=== PATIENT | female | born 1935 | race Caucasian/White ===

== ENCOUNTER 2019-07-05 06:16 | Inpatient (IN) ==
[2019-07-05] MEDS ORDERED: IOPAMIDOL 100 ML BOTTLE IV ONE (06:17)
[2019-07-05] MEDS ORDERED: ONDANSETRON 4 MG/2 ML VIAL IV ONE ×2 (06:33→15:50)
[2019-07-05] MEDS ORDERED: HYDROmorphone* 2 MG/ML VIAL IV PRN ×2 (06:33→10:44)
[2019-07-05] MEDS ORDERED: KETOROLAC 30 MG/ML VIAL IV ONE (06:33)
[2019-07-05] MEDS ORDERED: 0.9 % SODIUM CHLORIDE 1,000 ML IV ONE ×2 (06:33→12:46)
--- NOTE | 2019-07-05 06:37 | Emergency Department Note ---
Abdominal Pain HPI - General Chief Complaint: Abdominal Pain Stated Complaint: abdominal pain Time Seen by Provider: 07/05/19 06:33 Source: patient Mode of arrival: ambulatory Limitations: no limitations - History of Present Illness HPI Narrative: 84-year-old female with a 3-day history of constipation. Last bowel movement was normal. She is now having severe diffuse abdominal pain, since waking her up at 4 AM or approximately 2 and half hours ago. She took a laxative yesterday. She does not normally have to use laxatives. No fever or trauma not ed - Related Data Allergies Allergy/AdvReac Type Severity Reaction Status Date / Time No Known Drug Allergies Allergy Unverified 07/05/19 06:17 Review of Systems All systems ED: reviewed and negative except as stated. Abdominal Pain PMH - Past Medical History Attestation: Yes: The following information was validated with the patient. Medical history: Reports: cancer (Breast), hyperlipidemia, hypertension, other (Urinary incontinence) Surgical history ED: Reports: breast surgery - Social History Smoking status: Never smoker Physical Exam Thin elderly female in some acute distress secondary to pain. Normocephalic atraumatic. Conjunctive are clear sclerae white nonicteric. No nasal discharge or congestion. Oropharynx pink and moist. Heart is regular rate and rhythm no murmur appreciated. Lungs are clear to auscultation bilaterally without wheezes rales rhonchi or respiratory distress. Abdomen is mildly distended and tender all over. No point tenderness is noted. Even listening with my stethoscope elicited tenderness. Bowel sounds are quiet. No pedal edema. Alert oriented Limitations: no limitations Course Vital Signs Temperature 97.0 F 07/05/19 06:18 Pulse Rate 69 07/05/19 06:18 Respiratory Rate 18 07/05/19 06:18 Blood Pressure 164/78 07/05/19 06:18 Pulse Oximetry (%) 99 07/05/19 06:18 Temperature 97.0 F 07/05/19 06:18 Pulse Rate 71 07/05/19 08:32 Respiratory Rate 18 07/05/19 06:18 Blood Pressure 129/64 07/05/19 08:32 Pulse Oximetry (%) 98 07/05/19 08:32 Abdominal Pain - Lab Data Lab results reviewed: Yes I reviewed the patient's lab results. Result diagrams: 07/05/19 07:18 07/05/19 07:18 Lab Results 07/05/19 07/05/19 07/05/19 Range/Units 07:18 07:18 07:18 WBC 8.5 (4.50-11.00) K/mcL RBC 3.66 (3.59-5.38) M/mcL Hgb 11.6 (11.2-15.7) g/dL Hct 34.1 (34.1-44.9) % MCV 93.2 (80.0-100.0) fL MCH 31.7 (26.0-34.0) pg MCHC 34.0 (31.0-36.0) g/dL RDW 13.0 (11.5-14.5) % Plt Count 170 (140-440) K/mcL MPV 9.3 (7.4-10.4) fL Gran % 81.5 H (38.0-78.0) % Lymph % (Auto) 11.1 L (15.5-49.0) % [place] % (Auto) 5.1 (1.0-12.0) % Eos % (Auto) 1.6 (0.0-7.0) % Baso % (Auto) 0.7 (0.0-2.0) % Gran # 6.92 (1.80-8.00) K/mcL Lymph # (Auto) 0.94 L (1.50-4.80) K/mcL [place] # (Auto) 0.43 (0.10-0.90) K/mcL Eos # (Auto) 0.14 (0.00-0.70) K/mcL Baso # (Auto) 0.06 (0.00-0.30) K/mcL VBG Lactic Acid 2.5 H (0.5-2.0) mmol/L Sodium 137 (133-145) mmol/L Potassium 3.8 (3.3-5.1) mmol/L Chloride 104 (96-108) mmol/L Carbon Dioxide 22 (22-30) mmol/L Anion Gap 11.0 (8-16) BUN 26 H (8-23) mg/dl Creatinine 1.0 (0.6-1.1) mg/dl GFR Calculation 52 Glucose 114 H (70-105) mg/dL Calcium 9.3 (8.6-10.4) mg/dl Total Bilirubin 0.4 (0.0-1.0) mg/dL AST 18 (0-37) U/l ALT 12 (0-40) U/l Alkaline Phosphatase 34 L (39-117) U/L Total Protein 6.1 (5.9-8.4) gm/dL Albumin 3.6 (3.2-5.2) gm/dL Globulin 2.5 (2.2-3.7) gm/dL Albumin/Globulin Ratio 1.4 (1.0-2.3) Lipase 48 (7-60) U/L - Radiology Data Radiology results reviewed: Yes I reviewed the patient's radiology results. X-ray of the abdomen shows constipation but no specific findings Disposition Pt seen by WHALE FISHERMAN/PA only: No Clinical Impression: Abdominal pain Qualifiers: Abdominal location: generalized Qualified Code(s): R10.84 - Generalized abdominal pain Constipation Qualifiers: Constipation type: unspecified constipation type Qualified Code(s): K59.00 - Constipation, unspecified Summary: Ordered pain and nausea medicine. Start work-up with abdominal x-ray series and laboratory. Differential diagnosis includes constipation/obstipation versus bowel obstruction versus abscess or other intra-abdominal pathology. She does appear quite ill and may require emergent intervention-currently vital signs are stable but we will monitor closely while working up Pain medicine helped and she was feeling better. X-ray was unrevealing with nonspecific findings but large amount of stool is seen in the ascending colon. Laboratory does not show leukocytosis but she does have some mild lactic acidosis of 2.5 I did discuss findings with the patient. We will go ahead and order a CT scan of the abdomen pelvis to make sure were not missing anything because of the severity of her presentation. We will also try a fleets enema to see if that helps Patient will be checked out to Dr. hernandez at shift change. Further disposition per him Disposition: Still a Patient Condition: Serious Referrals: Emre Samuel MD [Primary Care Provider] -
--- NOTE | 2019-07-05 07:01 | XRay Report ---
INDICATION: diffuse abdominal pain, no bm x 3 days TECHNIQUE: Supine and upright abdomen. COMPARISON: None FINDINGS:Mildly prominent fecal material in the ascending colon may indicate mild constipation. Transverse colon, descending colon, sigmoid colon are unremarkable. No dilated gas-filled small bowel. No mechanical small bowel obstruction. No pneumoperitoneum. No biliary or portal venous gas. No pneumatosis. There is a focal calcification in the right side of the pelvis. Etiology is not certain. This may be within the gastrointestinal tract. History of right flank pain and renal colic is not given. IMPRESSION: 1. Mildly prominent fecal material in the ascending colon 2. Otherwise negative examination Interpreted and Authenticated by: Maxi Woods 07/05/19
[2019-07-05 07:57] LABS: Basophils # (Auto) 0.06 K/mcL (0.00-0.30); Basophils % (Auto) 0.7 % (0.0-2.0); Eosinophils # (Auto) 0.14 K/mcL (0.00-0.70); Eosinophils % (Auto) 1.6 % (0.0-7.0); Granulocytes % (Auto) 81.5 % (38.0-78.0); Hematocrit 34.1 % (34.1-44.9); Hemoglobin 11.6 g/dL (11.2-15.7); Lymphocytes # (Auto) 0.94 K/mcL (1.50-4.80); Lymphocytes % (Auto) 11.1 % (15.5-49.0); Mean Cell Volume 93.2 fL (80.0-100.0); Mean Platelet Volume 9.3 fL (7.4-10.4); Monocytes # (Auto) 0.43 K/mcL (0.10-0.90); Monocytes % (Auto) 5.1 % (1.0-12.0); Platelet Count 170 K/mcL (140-440); RBC 3.66 M/mcL (3.59-5.38); WBC 8.5 K/mcL (4.50-11.00)
[2019-07-05 08:13] LABS: ALT/SGPT 12 U/l (0-40); AST/SGOT 18 U/l (0-37); Albumin 3.6 gm/dL (3.2-5.2); Albumin/Globulin Ratio 1.4 (1.0-2.3); Alkaline Phosphatase 34 U/L (39-117); Bilirubin,Total 0.4 mg/dL (0.0-1.0); Blood Urea Nitrogen 26 mg/dl (8-23); Calcium 9.3 mg/dl (8.6-10.4); Carbon Dioxide 22 mmol/L (22-30); Chloride 104 mmol/L (96-108); Globulin 2.5 gm/dL (2.2-3.7); Glomerular Filtration Rate 52; Glucose 114 mg/dL (70-105)
[2019-07-05] MEDS ORDERED: FLEETS ADULT ENEMA PR ONE (08:37)
[2019-07-05] MEDS ORDERED: PROMETHAZINE 25 MG/ML VIAL IM PRN (10:44)
[2019-07-05] MEDS ORDERED: PIPERACILLIN SODIUM/TAZOBACTAM 3.375 GM in DEXTROSE 5% IN WATER 50 ML IV ONE (10:44)
--- NOTE | 2019-07-05 10:45 | Cat Scan Report ---
INDICATION: severe abdominal pain. no BM x 3days COMPARISON: None. TECHNIQUE: Axial images were obtained through the abdomen and pelvis. Sagittally and coronally reformatted images. 70 mL Isovue 370 injected intravenously. Oral contrast material was given FINDINGS: Stomach and duodenum are distended and contrast filled. There is a small hiatal hernia containing contrast material. Findings are consistent with left paraduodenal hernia and mechanical small bowel obstruction. There are findings of closed loop obstruction. Loops of small bowel are dilated and mesentery and vascularity are "funneled" medially toward the descending colon. Descending colon is displaced medially. There is mild free fluid in the pelvis as well as around the dilated small bowel loops. Small bowel wall enhances without nonenhancing segments. There is no pneumoperitoneum. Dr. Lee was called with these results, 07/05/2019, 1020. Lung bases:Negative. No pulmonary parenchymal nodule. No pleural fluid or pericardial fluid Liver:Negative. No focal intrahepatic mass. No focal abnormality. Liver contour is smooth. No evidence for cirrhosis Gallbladder, billary:No calcified gallstones. No gallbladder wall thickening. No dilated intra or extrahepatic bile ducts. Common bile duct measures 8 mm. This tapers normally at the ampulla Spleen:No splenomegaly. Normal enhancement of splenic and portal veins. Pancreas:No pancreatic mass. No peripancreatic abnormality Adrenal glands:Negative Kidneys, ureters, bladder: There are benign left renal cysts. There is a 14 mm exophytic right mid to lower pole mass. There are mural calcifications. There is mild mural thickening and enhancement. There may be some internal enhancement. Appearance is not consistent with a typical benign cyst. This is consistent with a Bosniak III cystic lesion and neoplasm is possible. Further evaluation or urologic consult recommended. Renal MRI may be helpful. There is no hydroureter. No ureteral stone No bladder calculi or detectable mass Gastrointestinal:As described above there is a left paraduodenal hernia and possible closed loop small bowel obstruction. Colon is negative. No evidence for appendicitis. There is no diverticulitis. Vascular: Calcification of the abdominal aorta. No abdominal aortic aneurysm. Course and contour of the celiac trunk are consistent with median arcuate ligament syndrome. Normal opacification of the inferior mesenteric artery Lymphatic:No retroperitoneal or mesenteric adenopathy Mesentery, peritoneum: Mild free intraperitoneal fluid. There is free fluid surrounding the dilated small bowel loops in the left side of the abdomen. No intra-abdominal abscess. There is no pneumoperitoneum. There is no portal venous gas or gas within the superior mesenteric vein. Reproductive:Anteflexed uterus. No adnexal mass Musculoskeletal:No lumbar compression fractures. Severe degenerative disc disease at L4-5 and L5-S1. There is an L2 vertebral body hemangioma. This is benign. There is heterogeneous marrow pattern throughout the lumbar spine, sacrum, and pelvis. No well-defined focal lytic lesion. IMPRESSION: 1. Small bowel obstruction. Appearance is consistent with left paraduodenal hernia and closed loop 2. Small bowel wall enhances without nonenhancing segments. There is free fluid adjacent to the abnormal small bowel loops as well as within the pelvis 3. Bosniak III right renal mass. Further evaluation or urologic consult recommended 4. 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 Interpreted and Authenticated by: Maxi Woods 07/05/19
--- NOTE | 2019-07-05 10:47 | Emergency Department Note ---
Abdominal Pain HPI - General Chief Complaint: Abdominal Pain Stated Complaint: abdominal pain Time Seen by Provider: 07/05/19 06:33 Source: patient Mode of arrival: ambulatory Limitations: no limitations - History of Present Illness HPI Narrative: I took over care of this patient at [address] Mc. - Related Data Allergies Allergy/AdvReac Type Severity Reaction Status Date / Time No Known Drug Allergies Allergy Unverified 07/05/19 06:17 Abdominal Pain PMH - Past Medical History Medical history: Reports: cancer (Breast), hyperlipidemia, hypertension, other (Urinary incontinence) - Social History Smoking status: Never smoker Physical Exam Limitations: no limitations Course Vital Signs Temperature 97.0 F 07/05/19 06:18 Pulse Rate 69 07/05/19 06:18 Respiratory Rate 18 07/05/19 06:18 Blood Pressure 164/78 07/05/19 06:18 Pulse Oximetry (%) 99 07/05/19 06:18 Temperature 97.0 F 07/05/19 06:18 Pulse Rate 75 07/05/19 10:36 Respiratory Rate 18 07/05/19 06:18 Blood Pressure 142/69 07/05/19 10:36 Pulse Oximetry (%) 94 07/05/19 10:36 Abdominal Pain - MDM Narrative Medical decision making narrative: Patient CT scan shows a periduodenal hernia with closed-loop obstruction. I discussed the case with the surgeon Dr. Rubio and we will admit her to the hospital for him. - Lab Data Lab results reviewed: Yes I reviewed the patient's lab results. Result diagrams: 07/05/19 07:18 07/05/19 07:18 Lab Results 07/05/19 07/05/19 07/05/19 Range/Units 07:18 07:18 07:18 WBC 8.5 (4.50-11.00) K/mcL RBC 3.66 (3.59-5.38) M/mcL Hgb 11.6 (11.2-15.7) g/dL Hct 34.1 (34.1-44.9) % MCV 93.2 (80.0-100.0) fL MCH 31.7 (26.0-34.0) pg MCHC 34.0 (31.0-36.0) g/dL RDW 13.0 (11.5-14.5) % Plt Count 170 (140-440) K/mcL MPV 9.3 (7.4-10.4) fL Gran % 81.5 H (38.0-78.0) % Lymph % (Auto) 11.1 L (15.5-49.0) % [place] % (Auto) 5.1 (1.0-12.0) % Eos % (Auto) 1.6 (0.0-7.0) % Baso % (Auto) 0.7 (0.0-2.0) % Gran # 6.92 (1.80-8.00) K/mcL Lymph # (Auto) 0.94 L (1.50-4.80) K/mcL [place] # (Auto) 0.43 (0.10-0.90) K/mcL Eos # (Auto) 0.14 (0.00-0.70) K/mcL Baso # (Auto) 0.06 (0.00-0.30) K/mcL VBG Lactic Acid 2.5 H (0.5-2.0) mmol/L Sodium 137 (133-145) mmol/L Potassium 3.8 (3.3-5.1) mmol/L Chloride 104 (96-108) mmol/L Carbon Dioxide 22 (22-30) mmol/L Anion Gap 11.0 (8-16) BUN 26 H (8-23) mg/dl Creatinine 1.0 (0.6-1.1) mg/dl GFR Calculation 52 Glucose 114 H (70-105) mg/dL Calcium 9.3 (8.6-10.4) mg/dl Total Bilirubin 0.4 (0.0-1.0) mg/dL AST 18 (0-37) U/l ALT 12 (0-40) U/l Alkaline Phosphatase 34 L (39-117) U/L Total Protein 6.1 (5.9-8.4) gm/dL Albumin 3.6 (3.2-5.2) gm/dL Globulin 2.5 (2.2-3.7) gm/dL Albumin/Globulin Ratio 1.4 (1.0-2.3) Lipase 48 (7-60) U/L - Radiology Data Radiology results reviewed: Yes I reviewed the patient's radiology results. Disposition Pt seen by TELEVISION NEWS ANCHOR/PA only: No Clinical Impression: Small bowel obstruction Abdominal pain Qualifiers: Abdominal location: generalized Qualified Code(s): R10.84 - Generalized abdominal pain Constipation Qualifiers: Constipation type: unspecified constipation type Qualified Code(s): K59.00 - Constipation, unspecified Disposition: Xfer As Outpt/Obs ([facility]) Condition: Good Referrals: Emre Samuel MD [Primary Care Provider] - Time of Disposition: 10:47
--- NOTE | 2019-07-05 13:21 | General Surg History&Physical ---
History of Present Illness Patient information: Note initiated : 07/05/19 at 1:19 pm Service Date, if different from initiated Date: [] Patient: Clara Kumari a 84 y/o F admitted on 07/05/19 for abdominal pain. Chief Complaint: [] HPI: Ms. Kumari is a 84 year old F 84-year-old female admitted with closed loop intestinal obstruction due to a left paraduodenal hernia. The patient awakened about 4 AM with abdominal pain on the left side. The pain became progressively worse. She tried to have a bowel movement and pass gas with no results. She had nausea but no vomiting. Because of pain increased in intensity. She was seen in the emergency room where was noted that she had large volume of stool in her right and ascending colon. CT of the abdomen shows small bowel in a paraduodenal hernia. Entering on the right side with the small bowel displacing the colon medially. There is some fluid around the bowel and in the mesentery. Her lactate is 2.6. She is afebrile. Patient has closed loop obstruction and is counseled for exploratory laparotomy with correction of the defect. Review of Systems All systems PM: reviewed and no additional remarkable complaints except as stated (negative except as noted above) Past History Past medical history: History of right breast cancer. Hypertension Past surgical history: Right breast lumpectomy with follow-up chemoradiation. Right bunion surgery Past family history: Mother age 52 due to lung cancer. 2 brothers due to lung cancer Past social history: Never smoker. Never drinker. Denies drug use. Retired correction officer. Medications and Allergies Home Medications Medication Instructions Recorded Confirmed Type Bisoprolol/Hydrochlorothiazide 1 each PO DAILY 07/05/19 07/05/19 History [Bisoprolol-Hctz 10-6.25 mg Tab] Levothyroxine [Synthroid] 50 mcg PO DAILY 07/05/19 07/05/19 History Losartan Potassium 100 mg PO DAILY 07/05/19 07/05/19 History Oxybutynin Chloride [Oxybutynin 5 mg PO DAILY 07/05/19 07/05/19 History Chloride ER] Rosuvastatin [Crestor] 10 mg PO DAILY 07/05/19 07/05/19 History Spironolactone [Aldactone] 25 mg PO DAILY 07/05/19 07/05/19 History Vitamin D3 2,000 unit PO DAILY 07/05/19 07/05/19 History Allergies Allergy/AdvReac Type Severity Reaction Status Date / Time No Known Drug Allergies Allergy Unverified 07/05/19 06:17 Exam Temp Pulse Resp BP Pulse Ox 97.0 F 75 18 124/75 94 07/05/19 12:32 07/05/19 12:32 07/05/19 12:32 07/05/19 12:32 07/05/19 12:32 - General physical appearance well developed, well nourished, no distress, moderate pain - Eyes PERRL, normal ocular movement - ENT normal pinna, normal nares, normal mucosa, no hearing loss, no congestion, dentures (full dentures) - Head Head exam IM: Present: atraumatic, normocephalic - Neck no masses, no bruits, trachea midline, no lymphadenopathy, no venous distension - Cardiovascular Cardiovascular exam IM: Present: normal rate and rhythm - Respiratory normal expansion, normal respiratory effort, clear to percussion, clear to auscultation - Abdomen Abdomen: Present: soft, tender (, tenderness left upper quadrant and left lateral abdomen; no palpable masses), bowel sounds Hernia: Present: none - Genitourinary Present: normal external genitalia - Rectum Rectum: Present: no masses - Integumentary Present: no rash, no growths, no abnormal pigmentation - Neurologic Present: normal coordination, normal sensation - Musculoskeletal Present: normal gait, normal posture - Psychiatric Present: oriented to time, oriented to person, oriented to place, speech is normal, memory intact Assessment and Plan (1) Small bowel obstruction Patient has preferred due to hernia with a small bowel obstruction. She was counseled for laparotomy with reduction of the small bowel and closure of the paraduodenal Defect. Status: Acute
--- NOTE | 2019-07-05 13:34 | XRay Report ---
INDICATION: PREOP EVALUATION TECHNIQUE: AP portable semiupright chest x-ray COMPARISON: None FINDINGS:Surgical clips in the right axilla Lungs:Lungs are negative. No focal pulmonary parenchymal infiltrate or mass Heart, vascular:No significant cardiomegaly. Pulmonary vascularity is normal. No pulmonary edema or pulmonary congestion Mediastinum, chiquita:No mediastinal widening. No hilar mass Pleura:No pleural fluid. No pleural-based mass or calcification Skeletal:Negative. IMPRESSION: Negative AP chest x-ray. No acute or focal abnormality Interpreted and Authenticated by: Maxi Woods 07/05/19
[2019-07-05] MEDS ORDERED: MAGNESIUM SULFATE 2 GM/50 ML BAG IV ONE ×2 (15:32→15:50)
[2019-07-05] MEDS ORDERED: PHENYLEPHRINE 10 MG/ML VIAL IV ONE (15:50)
[2019-07-05] MEDS ORDERED: KETAMINE 100 MG/ML ML IV ONE (15:50)
[2019-07-05] MEDS ORDERED: LIDOCAINE HCL/PF 100 MG/5 ML SYRINGE IV ONE (15:50)
[2019-07-05] MEDS ORDERED: ROPIVACAINE HCL/PF 20 ML VIAL IJ ONE (15:50)
[2019-07-05] MEDS ORDERED: HETASTARCH 6% 500 ML BAG IV ONE (15:50)
[2019-07-05] MEDS ORDERED: ROCURONIUM 10 MG/ML ML IV ONE (15:50)
[2019-07-05] MEDS ORDERED: fentaNYL 100 MCG/2 ML VIAL IV ONE (15:50)
[2019-07-05] MEDS ORDERED: DEXAMETHASONE 10 MG/ML VIAL IV ONE (15:50)
[2019-07-05] MEDS ORDERED: MIDAZOLAM 2 MG/2 ML VIAL IV ONE (15:50)
[2019-07-05] MEDS ORDERED: PROPOFOL 200 MG/20 ML VIAL IV ONE (15:50)
[2019-07-05] MEDS ORDERED: GLYCOPYRROLATE 0.2 MG/ML VIAL IV ONE (15:50)
[2019-07-05] MEDS ORDERED: IPRATROPIUM/ALBUTEROL 3 ML AMPUL.NEB NEB PRN (16:35)
[2019-07-05] MEDS ORDERED: fentaNYL 100 MCG/2 ML VIAL IV PRN (16:35)
[2019-07-05] MEDS ORDERED: LACTATED RINGERS 250 ML IV PRN (16:35)
[2019-07-05] MEDS ORDERED: METHOCARBAMOL 1,000 MG/10 ML VIAL IV PRN (16:35)
[2019-07-05] MEDS ORDERED: METOPROLOL TARTRATE 5 MG/5 ML VIAL IV PRN (16:35)
[2019-07-05] MEDS ORDERED: NALOXONE HCL 0.4 MG/ML VIAL IV PRN (16:35)
[2019-07-05] MEDS ORDERED: BENZOCAINE/MENTHOL 1 LOZENGE PO PRN (16:35)
[2019-07-05] MEDS ORDERED: LABETALOL 5 MG/ML ML IV PRN (16:35)
[2019-07-05] MEDS ORDERED: FLUMAZENIL 0.1 MG/ML ML IV PRN (16:35)
[2019-07-05] MEDS ORDERED: ACETAMINOPHEN 800 MG/80 ML BOTTLE IV ONE (16:35)
[2019-07-05] MEDS ORDERED: LACTATED RINGERS 1,000 ML IV SCH (16:45)
--- NOTE | 2019-07-05 16:50 | Brief Operative Note ---
Date of procedure: 07/05/19 Pre-op diagnosis: small bowel obstruction ;internal hernia Post-op diagnosis: other (internal hernia wwith jejunal obstruction) Procedure: exploratory laparotomy with reduction of paraduodenal hernia and meckels diverticulectomy Grafts/Implants: No Anesthesia: GETA Findings: midjejunum tightly wedged in mesenteric defect extending in paraduodenal space on left with displacement of left colon toward midline and anchored by adhesions between descending colon and omentum; diverticulum of midjejunum Complications: none Surgeon: Eliza Rubio Estimated blood loss (cc): 50 Specimens Removed/Pathology: other (small bowel diverticulum) Condition: stable Disposition: PACU
[2019-07-05] MEDS ORDERED: PROMETHAZINE 25 MG/ML VIAL IV PRN (19:43)
[2019-07-05] MEDS ORDERED: ONDANSETRON 4 MG/2 ML VIAL IV PRN (19:44)
[2019-07-05] MEDS: ACETAMINOPHEN 1,000 MG/100 ML BOTTLE IV SCH (19:59)
[2019-07-05] MEDS: 0.9 % SODIUM CHLORIDE 1,000 ML IV SCH (19:59)
[2019-07-05] MEDS: PIPERACILLIN SODIUM/TAZOBACTAM 3.375 GM in DEXTROSE 5% IN WATER 50 ML IV SCH ×2 (20:55→23:56)
[2019-07-05] MEDS: LACTATED RINGERS 1,000 ML IV SCH (21:58)
[2019-07-06] MEDS: ACETAMINOPHEN 1,000 MG/100 ML BOTTLE IV SCH ×4 (01:57→21:00)
[2019-07-06] MEDS: PIPERACILLIN SODIUM/TAZOBACTAM 3.375 GM in DEXTROSE 5% IN WATER 50 ML IV SCH ×4 (05:26→23:58)
[2019-07-06 06:56] LABS: Basophils # (Auto) 0.01 K/mcL (0.00-0.30); Basophils % (Auto) 0.1 % (0.0-2.0); Eosinophils # (Auto) 0.23 K/mcL (0.00-0.70); Granulocytes % (Auto) 90.7 % (38.0-78.0); Hematocrit 33.6 % (34.1-44.9); Hemoglobin 11.3 g/dL (11.2-15.7); Lymphocytes # (Auto) 0.54 K/mcL (1.50-4.80); Lymphocytes % (Auto) 4.8 % (15.5-49.0); Mean Cell Volume 95.7 fL (80.0-100.0); Mean Corpuscular HGB Conc 33.6 g/dL (31.0-36.0); Mean Platelet Volume 9.5 fL (7.4-10.4); Monocytes # (Auto) 0.27 K/mcL (0.10-0.90); Monocytes % (Auto) 2.4 % (1.0-12.0); Platelet Count 156 K/mcL (140-440); RBC 3.51 M/mcL (3.59-5.38); Red Cell Distribution Width 13.3 % (11.5-14.5); WBC 11.3 K/mcL (4.50-11.00)
[2019-07-06 07:21] LABS: ALT/SGPT 12 U/l (0-40); AST/SGOT 19 U/l (0-37); Albumin 2.8 gm/dL (3.2-5.2); Albumin/Globulin Ratio 1.3 (1.0-2.3); Alkaline Phosphatase 27 U/L (39-117); Bilirubin,Direct < 0.2 mg/dL (0.0-0.3); Bilirubin,Total 0.8 mg/dL (0.0-1.0); Blood Urea Nitrogen 31 mg/dl (8-23); Calcium 7.7 mg/dl (8.6-10.4); Carbon Dioxide 18 mmol/L (22-30); Chloride 106 mmol/L (96-108); Globulin 2.2 gm/dL (2.2-3.7); Glomerular Filtration Rate 27; Glucose 162 mg/dL (70-105); Lactate Dehydrogenase 225 U/L (94-250); Phosphorous 3.9 mg/dL (2.7-4.5); Triglycerides 33 mg/dl (<150); Uric Acid 3.9 mg/dL (2.5-8.0)
--- NOTE | 2019-07-06 11:08 | XRay Report ---
INDICATION: evaluate pulmonary edema TECHNIQUE: AP portable semiupright chest x-ray COMPARISON: Previous postoperative chest x-ray dated 07/05/2019 FINDINGS:Esophagogastric tube in the stomach Lungs:Lungs are significantly improved since 07/05/2019. Appearance is consistent with resolving pulmonary edema. Mild residual abnormality with interlobular septal thickening and mild right perihilar infiltrate. No consolidation Heart, vascular:No significant cardiomegaly. Mediastinum, chiquita:No mediastinal widening. No hilar mass Pleura:No pleural fluid. No pleural-based mass or calcification Skeletal:Negative. IMPRESSION: Improving pulmonary edema. Interpreted and Authenticated by: Maxi Woods 07/06/19
[2019-07-06] MEDS: 0.9 % SODIUM CHLORIDE 1,000 ML IV SCH (12:23)
--- NOTE | 2019-07-06 17:24 | General Surgery Progress Note ---
Subjective Patient reports: feels better, pain is less, no flatus, no bowel movement, afebrile Narrative: Note initiated : 07/06/19 at 5:21 pm Service Date, if different from initiated Date: [] Patient: Clara Kumari 84 y/o F admitted on 07/05/19 for abdominal pain. Chief Complaint: [patient is stable. Her pain is adequately controlled. She denies nausea. She has not had flatus. White blood count 11.3, hemoglobin 11.3, hematocrit 33.6, BUN 31, creatinine 1.7. Chest x-ray shows mild interstitial edema. She received IV Lasix last evening.] Objective Temp Pulse Resp BP Pulse Ox 98.0 F 82 18 137/73 89 L 07/06/19 15:20 07/06/19 04:00 07/06/19 15:20 07/06/19 15:20 07/06/19 15:20 - Additional Data Intake & Output - Last 24 hours: Intake & Output 07/04/19 07/05/19 07/06/19 07/07/19 05:59 05:59 05:59 05:59 Intake Total 3050 1300 Output Total 1250 300 Balance 1800 1000 Weight 140 lb 140 lb - General physical appearance well developed, well nourished, no distress - Eyes PERRL, normal ocular movement - ENT normal pinna, normal nares, normal mucosa, no hearing loss, no congestion - Neck no masses, no bruits, trachea midline, no lymphadenopathy, no venous distension - Respiratory normal expansion, normal respiratory effort, clear to auscultation, other ( no rales or rhonchi) - Cardiovascular Cardiovascular exam: Present: normal rate and rhythm, RRR, +S1, +S2. Absent: JVD, tachycardia - Abdomen non tender, bowel sounds (present), surgical scars ( . Mild bleeding from incision, but otherwise soft abdomen), masses (none) - Integumentary no rash, no growths, no abnormal pigmentation - Neurologic normal coordination, normal sensation - Musculoskeletal normal gait, normal posture - Psychiatric oriented to time, oriented to person, oriented to place, speech is normal, memory intact - Labs 07/06/19 05:54 07/06/19 05:54 Diabetes panel 07/06/19 Range/Units 05:54 Sodium 135 (133-145) mmol/L Potassium 4.5 (3.3-5.1) mmol/L Chloride 106 (96-108) mmol/L Carbon Dioxide 18 L (22-30) mmol/L BUN 31 H (8-23) mg/dl Creatinine 1.7 H (0.6-1.1) mg/dl Glucose 162 H (70-105) mg/dL Calcium 7.7 L (8.6-10.4) mg/dl AST 19 (0-37) U/l ALT 12 (0-40) U/l Alkaline Phosphatase 27 L (39-117) U/L Total Protein 5.0 L (5.9-8.4) gm/dL Albumin 2.8 L (3.2-5.2) gm/dL Triglycerides 33 (<150) mg/dl Calcium panel 07/06/19 Range/Units 05:54 Calcium 7.7 L (8.6-10.4) mg/dl Phosphorus 3.9 (2.7-4.5) mg/dL Albumin 2.8 L (3.2-5.2) gm/dL Pituitary panel 07/06/19 Range/Units 05:54 Sodium 135 (133-145) mmol/L Potassium 4.5 (3.3-5.1) mmol/L Chloride 106 (96-108) mmol/L Carbon Dioxide 18 L (22-30) mmol/L BUN 31 H (8-23) mg/dl Creatinine 1.7 H (0.6-1.1) mg/dl Glucose 162 H (70-105) mg/dL Calcium 7.7 L (8.6-10.4) mg/dl Adrenal panel 07/06/19 Range/Units 05:54 Sodium 135 (133-145) mmol/L Potassium 4.5 (3.3-5.1) mmol/L Chloride 106 (96-108) mmol/L Carbon Dioxide 18 L (22-30) mmol/L BUN 31 H (8-23) mg/dl Creatinine 1.7 H (0.6-1.1) mg/dl Glucose 162 H (70-105) mg/dL Calcium 7.7 L (8.6-10.4) mg/dl Total Bilirubin 0.8 (0.0-1.0) mg/dL AST 19 (0-37) U/l ALT 12 (0-40) U/l Alkaline Phosphatase 27 L (39-117) U/L Total Protein 5.0 L (5.9-8.4) gm/dL Albumin 2.8 L (3.2-5.2) gm/dL Assessment and Plan (1) Small bowel obstruction Status: Acute Assessment and plan: Check abdominal x-rays in the morning. Discontinue Briggs catheter Current Visit: Yes - Time Spent With Patient Total time spent is greater than 50% in coordination of care (as documented) at patient's floor/unit and/or counseling patient:
[2019-07-07] MEDS: ACETAMINOPHEN 1,000 MG/100 ML BOTTLE IV SCH ×4 (03:41→20:22)
[2019-07-07] MEDS: PIPERACILLIN SODIUM/TAZOBACTAM 3.375 GM in DEXTROSE 5% IN WATER 50 ML IV SCH ×4 (06:00→23:58)
[2019-07-07 06:28] LABS: Basophils # (Auto) 0.01 K/mcL (0.00-0.30); Basophils % (Auto) 0.1 % (0.0-2.0); Eosinophils # (Auto) 0 K/mcL (0.00-0.70); Eosinophils % (Auto) 0 % (0.0-7.0); Granulocytes % (Auto) 90.2 % (38.0-78.0); Hematocrit 30.7 % (34.1-44.9); Hemoglobin 10.3 g/dL (11.2-15.7); Lymphocytes # (Auto) 0.69 K/mcL (1.50-4.80); Lymphocytes % (Auto) 5.3 % (15.5-49.0); Mean Cell Volume 95.6 fL (80.0-100.0); Mean Corpuscular HGB Conc 33.6 g/dL (31.0-36.0); Mean Platelet Volume 9.6 fL (7.4-10.4); Monocytes # (Auto) 0.57 K/mcL (0.10-0.90); Monocytes % (Auto) 4.4 % (1.0-12.0); Platelet Count 150 K/mcL (140-440); RBC 3.21 M/mcL (3.59-5.38); Red Cell Distribution Width 13.9 % (11.5-14.5); WBC 12.9 K/mcL (4.50-11.00)
[2019-07-07 06:51] LABS: ALT/SGPT 14 U/l (0-40); AST/SGOT 25 U/l (0-37); Albumin 2.7 gm/dL (3.2-5.2); Albumin/Globulin Ratio 1.1 (1.0-2.3); Alkaline Phosphatase 26 U/L (39-117); Bilirubin,Direct < 0.2 mg/dL (0.0-0.3); Bilirubin,Total 0.7 mg/dL (0.0-1.0); Blood Urea Nitrogen 33 mg/dl (8-23); Calcium 8.1 mg/dl (8.6-10.4); Carbon Dioxide 20 mmol/L (22-30); Chloride 107 mmol/L (96-108); Globulin 2.5 gm/dL (2.2-3.7); Glomerular Filtration Rate 27; Glucose 118 mg/dL (70-105); Lactate Dehydrogenase 254 U/L (94-250); Phosphorous 3.4 mg/dL (2.7-4.5); Triglycerides 72 mg/dl (<150); Uric Acid 2.8 mg/dL (2.5-8.0)
[2019-07-07] MEDS: 0.9 % SODIUM CHLORIDE 1,000 ML IV SCH ×2 (06:56→09:44)
--- NOTE | 2019-07-07 09:48 | XRay Report ---
INDICATION: Post surgical TECHNIQUE: AP portable semiupright chest x-ray COMPARISON: Preoperative chest x-ray dated 07/05/2019 FINDINGS:There is an esophagogastric tube with its tip in the stomach Lungs:Interval development of diffuse pulmonary parenchymal infiltrates. Appearance is consistent with pulmonary edema. No focal pulmonary parenchymal consolidation. Heart, vascular:No significant cardiomegaly. Mediastinum, chiquita:No mediastinal widening. No hilar mass Pleura:Pleural fluid is not well evaluated on this AP, portable semiupright chest x-ray Skeletal:Negative. IMPRESSION: 1. Esophagogastric tube in the stomach 2. Diffuse parenchymal infiltrates consistent with interstitial pulmonary edema Interpreted and Authenticated by: Maxi Woods 07/07/19
--- NOTE | 2019-07-07 12:17 | XRay Report ---
INDICATION: evaluate pulmonary edema TECHNIQUE: AP portable semiupright chest x-ray COMPARISON: Previous postoperative chest x-rays dated 07/05/2009 07/05/2019. Preoperative chest x-ray dated 07/05/2019. FINDINGS: Lungs:Lungs are slightly improved since 07/06/2019 and significantly improved since 07/05/2019. There are decreased septal lines. No new focal parenchymal infiltrates. No parenchymal consolidation. Heart, vascular:No significant cardiomegaly. Mediastinum, chiquita:No mediastinal widening. No hilar mass Pleura:No pleural-based mass or calcification. Pleural fluid is not excluded on this AP portable chest x-ray Skeletal:Negative. IMPRESSION: Slight interval improvement since 07/06/2019. No new abnormalities. Interpreted and Authenticated by: Maxi Woods 07/07/19
--- NOTE | 2019-07-07 13:26 | General Surgery Progress Note ---
Subjective Patient reports: feels better, pain is less, flatus, no bowel movement, nausea Narrative: Note initiated : 07/07/19 at 1:23 pm Service Date, if different from initiated Date: [] Patient: Clara Kumari 84 y/o F admitted on 07/05/19 for abdominal pain. Chief Complaint: [patient states that she feels better. She is passing flatus but has not had a bowel movement. Nasogastric output is minimal. White blood count 12.9, hemoglobin 10.3, hematocrit 30.7, BUN 33, creatinine 1.7, potassium 3.9.] Objective Temp Pulse Resp BP Pulse Ox 98.9 F 88 12 138/85 95 07/07/19 11:27 07/07/19 07:06 07/07/19 11:27 07/07/19 11:27 07/07/19 11:27 - Additional Data Intake & Output - Last 24 hours: Intake & Output 07/05/19 07/06/19 07/07/19 07/08/19 05:59 05:59 05:59 05:59 Intake Total 3050 2600 150 Output Total 1250 955 300 Balance 1800 1645 -150 Weight 140 lb 133 lb 12.8 oz - General physical appearance well developed, well nourished, no distress - Eyes PERRL, normal ocular movement - ENT normal pinna, normal nares, normal mucosa, no hearing loss, no congestion - Neck no masses, no bruits, trachea midline, no lymphadenopathy, no venous distension - Respiratory normal expansion, normal respiratory effort, clear to auscultation - Cardiovascular Cardiovascular exam: Present: normal rate and rhythm, RRR, +S1, +S2. Absent: JV D, tachycardia - Abdomen distended (mild distention; good active bowel sounds) - Rectum normal sphincter tone (. There are only OF), no hemorrhoids, no tenderness, no masses, no bleeding - Integumentary no rash, no growths, no abnormal pigmentation - Neurologic normal coordination, normal sensation - Musculoskeletal normal gait, normal posture - Psychiatric oriented to time, oriented to person, oriented to place, speech is normal, memory intact - Labs 07/07/19 05:32 07/07/19 05:32 Diabetes panel 07/07/19 Range/Units 05:32 Sodium 137 (133-145) mmol/L Potassium 3.9 (3.3-5.1) mmol/L Chloride 107 (96-108) mmol/L Carbon Dioxide 20 L (22-30) mmol/L BUN 33 H (8-23) mg/dl Creatinine 1.7 H (0.6-1.1) mg/dl Glucose 118 H (70-105) mg/dL Calcium 8.1 L (8.6-10.4) mg/dl AST 25 (0-37) U/l ALT 14 (0-40) U/l Alkaline Phosphatase 26 L (39-117) U/L Total Protein 5.2 L (5.9-8.4) gm/dL Albumin 2.7 L (3.2-5.2) gm/dL Triglycerides 72 (<150) mg/dl Calcium panel 07/07/19 Range/Units 05:32 Calcium 8.1 L (8.6-10.4) mg/dl Phosphorus 3.4 (2.7-4.5) mg/dL Albumin 2.7 L (3.2-5.2) gm/dL Pituitary panel 07/07/19 Range/Units 05:32 Sodium 137 (133-145) mmol/L Potassium 3.9 (3.3-5.1) mmol/L Chloride 107 (96-108) mmol/L Carbon Dioxide 20 L (22-30) mmol/L BUN 33 H (8-23) mg/dl Creatinine 1.7 H (0.6-1.1) mg/dl Glucose 118 H (70-105) mg/dL Calcium 8.1 L (8.6-10.4) mg/dl Adrenal panel 07/07/19 Range/Units 05:32 Sodium 137 (133-145) mmol/L Potassium 3.9 (3.3-5.1) mmol/L Chloride 107 (96-108) mmol/L Carbon Dioxide 20 L (22-30) mmol/L BUN 33 H (8-23) mg/dl Creatinine 1.7 H (0.6-1.1) mg/dl Glucose 118 H (70-105) mg/dL Calcium 8.1 L (8.6-10.4) mg/dl Total Bilirubin 0.7 (0.0-1.0) mg/dL AST 25 (0-37) U/l ALT 14 (0-40) U/l Alkaline Phosphatase 26 L (39-117) U/L Total Protein 5.2 L (5.9-8.4) gm/dL Albumin 2.7 L (3.2-5.2) gm/dL Assessment and Plan (1) Small bowel obstruction Status: Acute Assessment and plan: Check abdominal x-rays in the morning. Discontinue nasogastric tube Current Visit: Yes - Time Spent With Patient Total time spent is greater than 50% in coordination of care (as documented) at patient's floor/unit and/or counseling patient:
[2019-07-08] MEDS: ACETAMINOPHEN 1,000 MG/100 ML BOTTLE IV SCH ×4 (02:01→19:41)
[2019-07-08] MEDS: PIPERACILLIN SODIUM/TAZOBACTAM 3.375 GM in DEXTROSE 5% IN WATER 50 ML IV SCH ×3 (05:46→17:43)
[2019-07-08 06:21] LABS: Basophils # (Auto) 0.02 K/mcL (0.00-0.30); Basophils % (Auto) 0.2 % (0.0-2.0); Eosinophils # (Auto) 0.13 K/mcL (0.00-0.70); Eosinophils % (Auto) 1.2 % (0.0-7.0); Granulocytes % (Auto) 88.7 % (38.0-78.0); Hematocrit 31.3 % (34.1-44.9); Hemoglobin 10.4 g/dL (11.2-15.7); Lymphocytes # (Auto) 0.68 K/mcL (1.50-4.80); Lymphocytes % (Auto) 6.5 % (15.5-49.0); Mean Corpuscular HGB Conc 33.2 g/dL (31.0-36.0); Mean Platelet Volume 9.4 fL (7.4-10.4); Monocytes # (Auto) 0.36 K/mcL (0.10-0.90); Monocytes % (Auto) 3.4 % (1.0-12.0); Platelet Count 142 K/mcL (140-440); RBC 3.26 M/mcL (3.59-5.38); WBC 10.5 K/mcL (4.50-11.00)
[2019-07-08 06:43] LABS: Bilirubin,Direct < 0.2 mg/dL (0.0-0.3); Chloride 105 mmol/L (96-108)
[2019-07-08 06:44] LABS: ALT/SGPT 14 U/l (0-40); AST/SGOT 23 U/l (0-37); Albumin 2.6 gm/dL (3.2-5.2); Alkaline Phosphatase 47 U/L (39-117); Bilirubin,Total 0.8 mg/dL (0.0-1.0); Blood Urea Nitrogen 23 mg/dl (8-23); Calcium 8.1 mg/dl (8.6-10.4); Carbon Dioxide 19 mmol/L (22-30); Globulin 2.7 gm/dL (2.2-3.7); Glomerular Filtration Rate 42; Glucose 85 mg/dL (70-105); Lactate Dehydrogenase 299 U/L (94-250); Phosphorous 2.3 mg/dL (2.7-4.5); Triglycerides 94 mg/dl (<150); Uric Acid 2.2 mg/dL (2.5-8.0)
--- NOTE | 2019-07-08 15:27 | General Surgery Progress Note ---
Subjective Patient reports: feels better, pain is less, flatus, no bowel movement, afebrile Narrative: Note initiated : 07/08/19 at 3:25 pm Service Date, if different from initiated Date: [] Patient: Clara Kumari 84 y/o F admitted on 07/05/19 for abdominal pain. Chief Complaint: [Patient states that she feels better. She is increased amount of flatus and denies abdominal pain. She denies nausea. She has some s hortness of breath last evening but it gradually improved during the night. She denies shortness of breath at the present. She remains on 2 L nasal oxygen with good saturation. White count 10.5, hemoglobin 10.4, hematocrit 31.3, creatinine 1.2, BUN 23, phosphorus 2.3, potassium 3.9.] Objective Temp Pulse Resp BP Pulse Ox 98.2 F 112 H 18 163/80 93 07/08/19 07:25 07/08/19 12:00 07/08/19 12:00 07/08/19 12:00 07/08/19 12:00 - Additional Data Intake & Output - Last 24 hours: Intake & Output 07/06/19 07/07/19 07/08/19 07/09/19 05:59 05:59 05:59 05:59 Intake Total 3050 2600 1183 300 Output Total 2882 621 5822 Balance 1800 1645 -167 300 Weight 140 lb 133 lb 12.8 oz 135 lb 3.2 oz 135 lb 3.2 oz - General physical appearance well developed, well nourished, no distress - Eyes PERRL, normal ocular movement - ENT normal pinna, normal nares, normal mucosa, no hearing loss, no congestion - Neck no masses, no bruits, trachea midline, no lymphadenopathy, no venous distension - Respiratory normal expansion, normal respiratory effort, other (few basilar rales) - Cardiovascular Cardiovascular exam: Present: normal rate and rhythm, RRR, +S1, +S2. Absent: JVD, tachycardia - Abdomen non tender, bowel sounds (present), surgical scars (none), masses (none) - Integumentary no rash, no growths, no abnormal pigmentation - Neurologic normal coordination, normal sensation - Musculoskeletal normal gait, normal posture - Psychiatric oriented to time, oriented to person, oriented to place, speech is normal, memory intact - Labs 07/08/19 05:26 07/08/19 05:26 Diabetes panel 07/08/19 Range/Units 05:26 Sodium 137 (133-145) mmol/L Potassium 3.9 (3.3-5.1) mmol/L Chloride 105 (96-108) mmol/L Carbon Dioxide 19 L (22-30) mmol/L BUN 23 (8-23) mg/dl Creatinine 1.2 H (0.6-1.1) mg/dl Glucose 85 (70-105) mg/dL Calcium 8.1 L (8.6-10.4) mg/dl AST 23 (0-37) U/l ALT 14 (0-40) U/l Alkaline Phosphatase 47 (39-117) U/L Total Protein 5.3 L (5.9-8.4) gm/dL Albumin 2.6 L (3.2-5.2) gm/dL Triglycerides 94 (<150) mg/dl Calcium panel 07/08/19 Range/Units 05:26 Calcium 8.1 L (8.6-10.4) mg/dl Phosphorus 2.3 L (2.7-4.5) mg/dL Albumin 2.6 L (3.2-5.2) gm/dL Pituitary panel 07/08/19 Range/Units 05:26 Sodium 137 (133-145) mmol/L Potassium 3.9 (3.3-5.1) mmol/L Chloride 105 (96-108) mmol/L Carbon Dioxide 19 L (22-30) mmol/L BUN 23 (8-23) mg/dl Creatinine 1.2 H (0.6-1.1) mg/dl Glucose 85 (70-105) mg/dL Calcium 8.1 L (8.6-10.4) mg/dl Adrenal panel 07/08/19 Range/Units 05:26 Sodium 137 (133-145) mmol/L Potassium 3.9 (3.3-5.1) mmol/L Chloride 105 (96-108) mmol/L Carbon Dioxide 19 L (22-30) mmol/L BUN 23 (8-23) mg/dl Creatinine 1.2 H (0.6-1.1) mg/dl Glucose 85 (70-105) mg/dL Calcium 8.1 L (8.6-10.4) mg/dl Total Bilirubin 0.8 (0.0-1.0) mg/dL AST 23 (0-37) U/l ALT 14 (0-40) U/l Alkaline Phosphatase 47 (39-117) U/L Total Protein 5.3 L (5.9-8.4) gm/dL Albumin 2.6 L (3.2-5.2) gm/dL Assessment and Plan (1) Small bowel obstruction Status: Acute Assessment and plan: Check abdominal x-rays in the morning. Start full liquid diet Current Visit: Yes - Time Spent With Patient Total time spent is greater than 50% in coordination of care (as documented) at patient's floor/unit and/or counseling patient:
[2019-07-09] MEDS: PIPERACILLIN SODIUM/TAZOBACTAM 3.375 GM in DEXTROSE 5% IN WATER 50 ML IV SCH ×3 (00:19→12:48)
[2019-07-09] MEDS ORDERED: METOPROLOL TARTRATE 5 MG/5 ML VIAL IV PRN ×2 (01:55→03:03)
[2019-07-09] MEDS ORDERED: ALPRAZolam 0.5 MG TABLET PO PRN ×3 (01:56→03:03)
[2019-07-09] MEDS ORDERED: METOPROLOL TARTRATE 5 MG/5 ML VIAL IV ONE (02:00)
[2019-07-09] MEDS ORDERED: ALPRAZolam 0.5 MG TABLET ONE (02:12)
[2019-07-09] MEDS: ACETAMINOPHEN 1,000 MG/100 ML BOTTLE IV SCH ×2 (02:19→09:32)
[2019-07-09 06:21] LABS: Basophils # (Auto) 0.02 K/mcL (0.00-0.30); Basophils % (Auto) 0.2 % (0.0-2.0); Eosinophils % (Auto) 3.6 % (0.0-7.0); Granulocytes % (Auto) 86.1 % (38.0-78.0); Hematocrit 30.9 % (34.1-44.9); Hemoglobin 10.4 g/dL (11.2-15.7); Lymphocytes # (Auto) 0.55 K/mcL (1.50-4.80); Lymphocytes % (Auto) 6.7 % (15.5-49.0); Mean Cell Volume 95.7 fL (80.0-100.0); Mean Corpuscular HGB Conc 33.7 g/dL (31.0-36.0); Mean Platelet Volume 9.2 fL (7.4-10.4); Monocytes # (Auto) 0.28 K/mcL (0.10-0.90); Monocytes % (Auto) 3.4 % (1.0-12.0); Platelet Count 143 K/mcL (140-440); RBC 3.23 M/mcL (3.59-5.38); Red Cell Distribution Width 13.6 % (11.5-14.5); WBC 8.2 K/mcL (4.50-11.00)
[2019-07-09 06:48] LABS: Bilirubin,Direct < 0.2 mg/dL (0.0-0.3); Chloride 107 mmol/L (96-108)
[2019-07-09 06:54] LABS: ALT/SGPT 14 U/l (0-40); AST/SGOT 24 U/l (0-37); Albumin 2.2 gm/dL (3.2-5.2); Albumin/Globulin Ratio 0.7 (1.0-2.3); Alkaline Phosphatase 44 U/L (39-117); Bilirubin,Total 0.7 mg/dL (0.0-1.0); Blood Urea Nitrogen 16 mg/dl (8-23); Carbon Dioxide 20 mmol/L (22-30); Glomerular Filtration Rate 52; Glucose 91 mg/dL (70-105); Lactate Dehydrogenase 338 U/L (94-250); Triglycerides 103 mg/dl (<150); Uric Acid 2.4 mg/dL (2.5-8.0)
[2019-07-09] MEDS ORDERED: LEVOTHYROXINE 50 MCG TABLET PO SCH (07:30)
[2019-07-09] MEDS ORDERED: HYDROCHLOROTHIAZIDE 25 MG TABLET PO SCH (09:00)
[2019-07-09] MEDS ORDERED: LOSARTAN 50 MG TABLET PO SCH (09:00)
[2019-07-09] MEDS ORDERED: BISOPROLOL 5 MG TABLET PO SCH (09:00)
--- NOTE | 2019-07-09 12:43 | Surgical Pathology Report ---
HISTOLOGY SPECIMEN MICROSCOPIC DIAGNOSIS SMALL BOWEL, MECKEL'S DIVERTICULUM, EXCISION: -- MUCOSAL DIVERTICULUM LINED BY UNREMARKABLE INTESTINAL TYPE MUCOSA (MECKEL'S DIVERTICULUM). -- PATCHY FIBROUS SEROSAL ADHESIONS. -- NO CYTOLOGIC ATYPIA, NEOPLASIA OR MALIGNANCY IDENTIFIED. (ACP:adj) CLINICAL HISTORY Abdominal pain. PROCEDURAL IMPRESSION Meckel's diverticula; paradoudenal hernia. GROSS DESCRIPTION Received in formalin, designated Meckel's diverticula, is a 1.5 x 1.4 x 1.1 cm pouch-like portion of small intestine. One end is open with a diameter of 1 cm and the opposite end ends in a blunt pouch. A minimal amount of attached noyola-yellow adipose tissue is present on the serosal surface. The margin is inked black and the specimen is trisected and entirely submitted in two cassettes. (DMT:adj) Electronically Signed by: Dell Last M.D.
--- NOTE | 2019-07-09 13:54 | Discharge Summary ---
Providers - Providers Patient information: Note initiated : 07/09/19 at 1:49 pm Service Date, if different from initiated Date: [] Patient: Clara Kumari 84 y/o F admitted on 07/05/19 for abdominal pain. Chief Complaint: [] Date of admission: 07/05/19 Discharge date: 07/09/19 Attending physician: Eliza Rubio Hospitalization Hospital Course: 84-year-old female admitted on June the complaint of acute onset of abdominal pain with nausea. It progressed in intensity and she was seen in the emergency room where she was noted to have a closed loop obstruction and a left- sided paraduodenal hernia. She had urgent operative exploration and was found to have a closed loop obstruction at a point where the small bowel went through a defect in the omentum as it attached to the descending colon. This extended retroperitoneally into a defect in the previous area of the ligament of Treitz and into the retroperitoneum. The omental defect was corrected by the omentum from the descending colon. The bowel was pulled out of the retroperitoneal defect and the defect was closed with 2-0 Monocryl. The bowel was dusky initially, but after observation over about a 5 minute period. It had return of vascularity and it retains its peristalsis though the bowel wall was slightly thickened. The rest of the bowel was inspected and was normal. There was no malrotation of the small or large intestine. In the postoperative period, she had gradual return of intestinal function. She did develop some volume overload which was treated with Lasix diuresis. She responded appropriately and is now off oxygen and ambulating with her sats remaining above 90%. She does not have any rales or rhonchi. Today's labs reveal white count 8.2, hemoglobin 10.4, hematocrit 30.9, potassium 4, BUN 16, creatinine 1, phosphorus. She had 2 bowel movements today and is passing copious flatus. She is staying stable for discharge home. Discharge diagnosis: closed loop obstruction of small bowel Secondary discharge diagnosis: , left paraDuodenal hernia Reason for admission: abdominal pain with intestinal obstruction Procedures: Exploratory laparotomy with reduction of paraduodenal hernia and correction of closed-loop obstruction due to defect in the omentum Pertinent studies/significant findings: CT of abdomen and pelvis with contrast Complications: None Exam Temp Pulse Resp BP Pulse Ox 98.3 F 77 16 142/77 94 04/28/20 12:00 07/09/19 12:00 07/09/19 12:00 07/09/19 12:00 07/09/19 12:00 - General physical appearance well developed, well nourished, no distress - Eyes PERRL, normal ocular movement - ENT normal pinna, normal nares, normal mucosa, no hearing loss, no congestion - Head Head exam IM: Present: atraumatic, normocephalic - Neck no masses, no bruits, trachea midline, no lymphadenopathy, no venous distension - Cardiovascular Cardiovascular exam IM: Present: normal rate and rhythm, RRR, +S1, +S2. Absent: JVD, tachycardia - Respiratory normal expansion, normal respiratory effort, clear to auscultation - Abdomen Abdomen: Present: soft, non tender, bowel sounds, surgical scars (incision is healing) Hernia: Present: none - Genitourinary Present: normal external genitalia - Integumentary Present: no rash, no growths, no abnormal pigmentation - Neurologic Present: normal coordination, normal sensation - Musculoskeletal Present: normal gait, normal posture - Psychiatric Present: oriented to time, oriented to person, oriented to place, speech is normal, memory intact Discharge Plan - Patient/Caregiver Discharge Instructions Activity: increase activity as tolerated Diet: Regular Diet Additional Instructions: No new prescriptions - Follow up Plan Follow up with: Emre Samuel MD [Primary Care Provider] - Eliza Rubio MD [Physician] - Disposition: Home, Self-Care Prognosis: Good Rehab Potential: Good I certify that the patient requires SNF services.: No Overall status at discharge: patient is progressing back to baseline Pending Studies Resuscitation Status Full Code Diet Full Liquid Diet Start MonJul 07 170 Bisoprolol Fumarate (Zebeta) 10 mg PO DAILY [facility]ALVA Last Admin: 07/09/19 09:27 Dose: 10 mg Documented by: [email or web address] Hydrochlorothiazide (Oretic) 6.25 mg PO DAILY [facility]ALVA Last Admin: 07/09/19 09:26 Dose: 6.25 mg Documented by: [email or web address] Acetaminophen (Ofirmev) 1,000 mg in 100 mls @ 200 mls/hr IV Q6H ROSALVA; Protocol Last Infusion: 07/09/19 11:48 Dose: 200 mls/hr Documented by: [email or web address] Admin: 07/09/19 09:32 Dose: 200 mls/hr Documented by: [email or web address] Infusion: 07/09/19 02:49 Dose: 200 mls/hr Documented by: [email or web address] Admin: 07/09/19 02:19 Dose: 200 mls/hr Documented by: Infusion: 07/08/19 20:11 Dose: 0 mls/hr Documented by: Admin: 07/08/19 19:41 Dose: 200 mls/hr Documented by: Infusion: 07/08/19 14:05 Dose: 0 mls/hr Documented by: [email or web address] Admin: 07/08/19 13:35 Dose: 200 mls/hr Documented by: [email or web address] Infusion: 07/08/19 09:13 Dose: 200 mls/hr Documented by: [email or web address] Admin: 07/08/19 08:43 Dose: 200 mls/hr Documented by: [email or web address] Infusion: 07/08/19 02:52 Dose: 0 mls/hr Documented by: Admin: 07/08/19 02:01 Dose: 200 mls/hr Documented by: Infusion: 07/07/19 21:37 Dose: 0 mls/hr Documented by: Admin: 07/07/19 20:22 Dose: 200 mls/hr Documented by: Infusion: 07/07/19 17:26 Dose: 0 mls/hr Documented by: Admin: 07/07/19 15:55 Dose: 200 mls/hr Documented by: Infusion: 07/07/19 12:35 Dose: 0 mls/hr Documented by: Admin: 07/07/19 09:43 Dose: 200 mls/hr Documented by: Infusion: 07/07/19 04:15 Dose: 0 mls/hr Documented by: Admin: 07/07/19 03:41 Dose: 200 mls/hr Documented by: Infusion: 07/06/19 21:30 Dose: 200 mls/hr Documented by: Admin: 07/06/19 21:00 Dose: 200 mls/hr Documented by: Infusion: 07/06/19 15:04 Dose: 0 mls/hr Documented by: Admin: 07/06/19 13:54 Dose: 200 mls/hr Documented by: Infusion: 07/06/19 08:05 Dose: 0 mls/hr Documented by: Admin: 07/06/19 07:10 Dose: 200 mls/hr Documented by: Infusion: 07/06/19 02:38 Dose: 0 mls/hr Documented by: Admin: 07/06/19 01:57 Dose: 200 mls/hr Documented by: Admin: 07/05/19 19:59 Dose: Not Given Documented by: [email or web address] Piperacillin Sod/Tazobactam (Sod 3.375 gm/ Dextrose) 50 mls @ 100 mls/hr IV Q6H ROSALVA; Protocol Last Admin: 07/09/19 12:48 Dose: 100 mls/hr Documented by: Infusion: 07/09/19 06:33 Dose: 100 mls/hr Documented by: Admin: 07/09/19 06:03 Dose: 100 mls/hr Documented by: Infusion: 07/09/19 00:49 Dose: 0 mls/hr Documented by: Admin: 07/09/19 00:19 Dose: 100 mls/hr Documented by: Infusion: 07/08/19 18:13 Dose: 0 mls/hr Documented by: Admin: 07/08/19 17:43 Dose: 100 mls/hr Documented by: [email or web address] Infusion: 07/08/19 13:25 Dose: 0 mls/hr Documented by: [email or web address] Admin: 07/08/19 12:54 Dose: 100 mls/hr Documented by: [email or web address] Infusion: 07/08/19 06:16 Dose: 100 mls/hr Documented by: [email or web address] Admin: 07/08/19 05:46 Dose: 100 mls/hr Documented by: Infusion: 07/08/19 00:28 Dose: 0 mls/hr Documented by: Admin: 07/07/19 23:58 Dose: 100 mls/hr Documented by: Infusion: 07/07/19 17:56 Dose: 0 mls/hr Documented by: Admin: 07/07/19 17:26 Dose: 100 mls/hr Documented by: Infusion: 07/07/19 13:29 Dose: 0 mls/hr Documented by: Admin: 07/07/19 12:35 Dose: 100 mls/hr Documented by: Infusion: 07/07/19 09:44 Dose: 0 mls/hr Documented by: Admin: 07/07/19 06:00 Dose: 100 mls/hr Documented by: Infusion: 07/07/19 00:28 Dose: 100 mls/hr Documented by: Admin: 07/06/19 23:58 Dose: 100 mls/hr Documented by: Infusion: 07/06/19 18:36 Dose: 100 mls/hr Documented by: Admin: 07/06/19 18:06 Dose: 100 mls/hr Documented by: Infusion: 07/06/19 15:04 Dose: 0 mls/hr Documented by: Admin: 07/06/19 13:12 Dose: 100 mls/hr Documented by: Infusion: 07/06/19 08:28 Dose: 0 mls/hr Documented by: Admin: 07/06/19 05:26 Dose: 100 mls/hr Documented by: Infusion: 07/06/19 02:38 Dose: 0 mls/hr Documented by: Admin: 07/05/19 23:56 Dose: 100 mls/hr Documented by: Infusion: 07/05/19 21:58 Dose: 0 mls/hr Documented by: Admin: 07/05/19 20:55 Dose: 100 mls/hr Documented by: FILOMENA Levothyroxine Sodium (Synthroid) 50 mcg PO ACB ROSALVA Last Admin: 07/09/19 09:31 Dose: 50 mcg Documented by: [email or web address] Losartan Potassium (Cozaar) 100 mg PO DAILY [facility] Last Admin: 07/09/19 09:27 Dose: 100 mg Documented by: [email or web address] Ondansetron HCl (Zofran) 4 mg IV Q4HP PRN PRN Reason: Nausea And Vomiting Last Admin: 07/07/19 13:28 Dose: 4 mg Documented by: [email or web address] Shift Summary 07/09/19 04:46 Shift Summary by Lawanda Arce A&O, calls for needs. Midline abdominal incision covered with gauze and tagaderm, gauze has serosanguineous drainage, has not increased through night. Briggs in place putting out good amounts. O2 at 2.5L via NC, no SOB reported tonight. BP remained in the 140's/80-90, HR was in the 1-teens and up to 130 at times, at around 0150, rechecked HR and it was in the 150's, received metoprolol 5mg IV and brought HR down to the 80's. She had not been sleeping well tonight and when that was mentioned during report to doc about HR, he ordered Xanax 0.5mg PO and was ok with her taking it at 0200, she has been sle eping since, is arousable but deeply asleep, continuous pulse ox in place. Repositions self in bed. No complaints of pain/nausea. States she is passing lots of flatus, no BM, abdomen is a lot less distended and soft. Initialized on 07/09/19 04:46 - END OF NOTE
--- NOTE | 2019-07-24 12:59 | Operative Note ---
DATE OF OPERATION: 07/05/2019 PREOPERATIVE DIAGNOSES: Small bowel obstruction and internal hernia. POSTOPERATIVE DIAGNOSES: Internal hernia with jejunal obstruction. PROCEDURE: Exploratory laparotomy with reduction of paraduodenal hernia and Meckel's diverticulectomy. SURGEON: Eliza Rubio M.D. FINDINGS: Mid-jejunum was tightly wedged in a mesenteric defect, extending in the paraduodenal space on the left with displacement of the left colon towards the midline. This was anchored by adhesions between the descending colon and omentum. There was a diverticulum of the mid-ileum which was resected. DESCRIPTION OF PROCEDURE: Under general anesthesia, the patient's abdomen was prepped and draped in a sterile field. Timeout procedure was carried out as per protocol. Midline incision was made. Dilated loops of the small bowel was encountered. The small bowel was gently removed from the peritoneal space. There was a chronic defect and an adhesive band that had been developed between the descending colon and the omentum. Loops of jejunum were tightly anchored through this defect and extended into the peritoneal space proper. The adhesions between the omentum and the descending colon were released with electrocautery, thereby freeing the jejunal loops. The loops were slightly congested and mildly erythematous but had excellent blood supply. The jejunal loops then entered a defect near the ligament of Treitz. It was medial to the ligament of Treitz, and the bowel was tightly adherent in this defect and progressing medially, lifting the duodenum anteriorly and creating a defect in the retroperitoneal space, entering the lesser sac. The bowel was pulled out of this cavity, and the jejunum was then attached to the retroperitoneal space using interrupted sutures of 3-0 silk. This, in essence, closed this defect. The bowel was then straightened, and there were two other areas that were tightly adhesed causing a partial obstruction. These were released with Metzenbaum scissors and the total bowel was free. The bowel was then run from the ligament of Treitz to the ileocecal valve. About 1-1/2 to 2 feet from the ileocecal valve, there was a single diverticulum coming off the antimesenteric border of the ileum. It had what appeared to be separate thickening of the dome of the diverticulum, and it was supplied by a separate vessel extending from the mesentery. It was felt to be a Meckel's diverticulum. The Meckel's diverticulum was excised using a 30 mm stapler. Staple line was stable. Irrigation was carried out. The bowel was returned to the peritoneal cavity and covered with the omentum. The peritoneum and fascia was closed using running locking #1 Prolene. Subcutaneous tissue was closed with 2-0 Monocryl. Skin was closed with fauzia. Tegaderm dressing was placed. The patient tolerated the procedure well. She was awakened, transferred to a bed, and taken to the postanesthetic care unit in satisfactory condition. LCS:emani Job ID: [id number] Doc ID: [id number] Eliza Rubio M.D.
== END 2019-07-09 16:25 | disposition home or self-care (01) | DRG 330 ==
LOC: ED 06:16 → MEDSUR 12:19
PROVIDERS: ADMIT Family Medicine Adult Medicine; ATTEND Family Medicine Adult Medicine